=== PATIENT | male | born 1945 | race Caucasian/White ===

== ENCOUNTER 2020-10-17 11:22 | Outpatient (CLI) | payer MEDICARE, BC | END 2020-10-17 11:23 | disposition home or self-care (01) | LOC: SCSRAD 11:22 | PROVIDERS: ATTEND Physician Assistant | DX: S20.212A Contusion of left front wall of thorax, initial encounter (principal); S22.42XA Multiple fractures of ribs, left side, initial encounter for closed fracture | CPT/HCPCS: 71046 ==

== ENCOUNTER 2020-12-06 16:34 | Outpatient (CLI) | payer MEDICARE, BC | END 2020-12-06 16:35 | disposition home or self-care (01) | LOC: SCSRAD 16:34 | PROVIDERS: ATTEND Physician Assistant | DX: S22.42XS Multiple fractures of ribs, left side, sequela (principal) ==